=== PATIENT | male | born 1990 | race Caucasian/White ===

== ENCOUNTER 2017-07-06 03:29 | Emergency (ER) | payer MEDICAID ==
[2017-07-06] MEDS ORDERED: NS 1,000 ML IV ONE ×3 (03:31→06:03)
[2017-07-06] MEDS ORDERED: LORazepam 2 MG/ML INJ IVP ONE (03:32)
--- NOTE | 2017-07-06 03:35 | EDPHY ---
H & P Time Seen by Provider: 07/06/17 03:33 HPI/ROS: HPI CHIEF COMPLAINT: Nausea and vomiting HISTORY OF PRESENT ILLNESS: Patient is a 27-year-old male he resides at a [facility] house, states 2 days ago he did methamphetamine and heroin. States he snorted the heroin and injected methamphetamine. He states now this evening he had nausea vomiting. Denies any diarrhea. Denies chest pain or shortness of breath. He had multiple episodes of vomiting and a [facility] house call 911. Patient is concerned about withdrawal. He only did 1 dose of heroin and methamphetamine. EMS could not get night on him but they gave him oral Zofran. Past Medical History: Polysubstance abuse Past Surgical History: No recent surgery Social History: Polysubstance abuse, methamphetamine, heroin resides at a [facility] house. Family History: Noncontributory ROS REVIEW OF SYSTEMS: A comprehensive 10 point review of systems is otherwise negative aside from elements mentioned in the history of present illness. Exam Constitutional appears well nontoxic triage nursing summary reviewed, vital signs reviewed, awake/alert. Eyes normal conjunctivae and sclera, EOMI, PERRLA. HENT normal inspection, atraumatic, moist mucus membranes, no epistaxis, neck supple/ no meningismus, no raccoon eyes. Respiratory clear to auscultation bilaterally, normal breath sounds, no respiratory distress, no wheezing. Cardiovascular rate normal, regular rhythm, no murmur, no edema, distal pulses normal. Gastrointestinal soft, non-tender, no rebound, no guarding, normal bowel sounds, no distension, no pulsatile mass. Genitourinary no CVA tenderness. Musculoskeletal no midline vertebral tenderness, full range of motion, no calf swelling, no tenderness of extremities, no meningismus, good pulses, neurovascularly intact. Skin pink, warm, & dry, no rash, skin atraumatic. Neurologic awake, alert and oriented x 3, AAOx3, moves all 4 extremities equally, motor intact, sensory intact, CN II-XII intact, normal cerebellar, normal vision, normal speech. Psychiatric normal mood/affect. Heme/Lymph/Immune no lymphadenopathy. Differential Diagnosis: Includes but is not limited to in a particular order dehydration contrast disturbance, acute nausea vomiting from drugs, methamphetamine abuse, heroin abuse, withdrawal, anxiety Medical Decision Making: Plan for this patient IV establishment with blood draw , check basic electrolytes, 1 L normal saline IV fluids, IV Ativan for anxiety and nausea, IV Benadryl, and re-evaluate Re-evaluation: 0555: Patient re-evaluated he received Benadryl and Ativan here for nausea and anxiety and is doing much better. His blood work has been reviewed. He has been resting comfortably common relaxed. He has not any vomiting here. His abdomen is soft nontender. Bleed the Benadryl and Ativan helped him with his recent use of methamphetamine and anxiety. 0700: Signed over to Dr. Wick, Patient sleepy from meds, resting, needs more time, then can be discharged from er. Source: Patient, EMS Constitutional: Initial Vital Signs Temperature (C) 36.8 C 07/06/17 03:34 Heart Rate 91 07/06/17 03:34 Respiratory Rate 22 H 07/06/17 03:34 Blood Pressure 136/86 H 07/06/17 03:34 O2 Sat (%) 95 07/06/17 03:34 O2 Delivery Mode Nasal Cannula O2 (L/minute) 1 Allergies/Adverse Reactions: Penicillins Allergy (Verified 07/06/17 03:30) Home Medications: Medication Instructions Recorded NK [No Known Home Meds] 07/06/17 Medical Decision Making - Data Points Laboratory Results: Laboratory Results 07/06/17 03:45 07/06/17 03:45 07/06/17 07/06/17 03:45 03:45 WBC 11.61 10^3/uL H 10^3/uL (3.80-9.50) RBC 4.76 10^6/uL 10^6/uL (4.40-6.38) Hgb 14.5 g/dL g/dL (13.7-17.5) Hct 41.9 % % (40.0-51.0) MCV 88.0 fL fL (81.5-99.8) MCH 30.5 pg pg (27.9-34.1) MCHC 34.6 g/dL g/dL (32.4-36.7) RDW 12.1 % % (11.5-15.2) Plt Count 224 10^3/uL 10^3/uL (150-400) MPV 10.1 fL fL (8.7-11.7) Neut % (Auto) 71.2 % % (39.3-74.2) Lymph % (Auto) 18.7 % % (15.0-45.0) Nelson % (Auto) 9.4 % % (4.5-13.0) Eos % (Auto) 0.1 % L % (0.6-7.6) Baso % (Auto) 0.3 % % (0.3-1.7) Nucleat RBC Rel Count 0.0 % % (0.0-0.2) Absolute Neuts (auto) 8.27 10^3/uL H 10^3/uL (1.70-6.50) Absolute Lymphs (auto) 2.17 10^3/uL 10^3/uL (1.00-3.00) Absolute Monos (auto) 1.09 10^3/uL H 10^3/uL (0.30-0.80) Absolute Eos (auto) 0.01 10^3/uL L 10^3/uL (0.03-0.40) Absolute Basos (auto) 0.04 10^3/uL 10^3/uL (0.02-0.10) Absolute Nucleated RBC 0.00 10^3/uL 10^3/uL (0-0.01) Immature Gran % 0.3 % % (0.0-1.1) Immature Gran # 0.03 10^3/uL 10^3/uL (0.00-0.10) Sodium 143 mEq/L mEq/L (135-145) Potassium 4.6 mEq/L mEq/L (3.5-5.2) Chloride 106 mEq/L mEq/L (97-110) Carbon Dioxide 23 mEq/l mEq/l (22-31) Anion Gap 14 mEq/L mEq/L (8-16) BUN 15 mg/dL mg/dL (7-23) Creatinine 1.1 mg/dL mg/dL (0.7-1.3) Estimated GFR > 60 Glucose 95 mg/dL mg/dL (70-100) Calcium 9.4 mg/dL mg/dL (8.5-10.4) Total Bilirubin 0.8 mg/dL mg/dL (0.1-1.4) Conjugated Bilirubin 0.5 mg/dL mg/dL (0.0-0.5) Unconjugated Bilirubin 0.3 mg/dL mg/dL (0.0-1.1) AST 21 IU/L IU/L (17-59) ALT 34 IU/L IU/L (21-72) Alkaline Phosphatase 101 IU/L IU/L (38-126) Total Protein 7.5 g/dL g/dL (6.3-8.2) Albumin 4.5 g/dL g/dL (3.5-5.0) Lipase 238 IU/L IU/L (23-300) Medications Given: Discontinued Medications Diphenhydramine HCl (Benadryl Injection) 25 mg IVP EDNOW ONE Stop: 07/06/17 03:33 Last Admin: 07/06/17 03:57 Dose: 25 mg Sodium Chloride (Ns) 1,000 mls @ 0 mls/hr IV EDNOW ONE; Wide Open PRN Reason: Protocol Stop: 07/06/17 03:32 Last Admin: 07/06/17 03:53 Dose: 1,000 mls Lorazepam (Ativan Injection) 0.5 mg IVP EDNOW ONE Stop: 07/06/17 03:33 Last Admin: 07/06/17 03:57 Dose: 0.5 mg Departure - Departure Disposition: Home, Routine, Self-Care Clinical Impression: Vomiting Qualifiers: Vomiting type: unspecified Vomiting Intractability: non-intractable Nausea presence: with nausea Qualified Code(s): R11.2 - Nausea with vomiting, unspecified Condition: Good Instructions: Acute Nausea and Vomiting (ED) Referrals: Patient,NotPresent [Unknown] - As per Instructions
[2017-07-06 03:58] LABS: PLATELET COUNT 224 10^3/uL (150-400)
[2017-07-06 12:05] VITALS: BP 109/69
== END 2017-07-06 12:23 | disposition home or self-care (01) ==
DX: R11.2 Nausea with vomiting, unspecified (principal); E86.9 Volume depletion, unspecified
CPT/HCPCS: 80305; 96374; J1200; J2060

== ENCOUNTER 2017-10-08 14:48 | Emergency (ER) | payer MEDICAID ==
[2017-10-08 14:55] VITALS: BP 138/88
--- NOTE | 2017-10-08 15:54 | EDPHY ---
H & P Time Seen by Provider: 10/08/17 15:19 HPI/ROS: CHIEF COMPLAINT: Right thumb injury HISTORY OF PRESENT ILLNESS: 19-year-old male presents emergency department with injury to the right thumb. The patient fell snowboarding jamming his right thumb. He complains of isolated pain to the right thumb. Denies any other trauma or injury. Denies pain in his right wrist. He is right-hand dominant. ROS: Denies numbness or tingling in his fingers, pain in his right wrist or elbow. Past Medical/Surgical History: Substance abuse Social History: Single Smoking Status: Current every day smoker Physical Exam: Examination the right thumb reveals obvious swelling noted from D IP joint to the very tip of the thumb. There is swelling and ecchymosis noted to the palmar , distal aspect of the right thumb. No rotational deformities noted. No subungual hematoma or laceration. The other fingers do not appear injured. Normal sensation to light touch with normal 2 point discrimination. Constitutional: Initial Vital Signs Temperature (C) 36.9 C 10/08/17 14:53 Heart Rate 83 10/08/17 14:53 Respiratory Rate 18 10/08/17 14:53 Blood Pressure 138/88 H 10/08/17 14:53 O2 Sat (%) 94 10/08/17 14:53 O2 Delivery Mode Room Air Allergies/Adverse Reactions: Penicillins Allergy (Verified 07/06/17 03:30) Home Medications: Medication Instructions Recorded NK [No Known Home Meds] 07/06/17 MDM/Departure - MDM Procedures: The patient was placed in Ortho Glass thumb spica splint and examined post application in good placement with normal PELOTA MAKER. ED Course/Re-evaluation: 27-year-old male presents to the emergency department with right thumb injury. X-rays reveal fracture to the base of the distal phalanx. He was placed in Ortho Glass splint and examined post application in good placement with normal PELOTA MAKER. - Depart Disposition: Home, Routine, Self-Care Clinical Impression: Fracture of thumb, right, closed Qualifiers: Encounter type: initial encounter Phalanx: distal Fracture alignment: nondisplaced Qualified Code(s): S62.524A - Nondisplaced fracture of distal phalanx of right thumb, initial encounter for closed fracture Condition: Good Instructions: Thumb Fracture (ED) Additional Instructions: Keep splint on and keep it dry. Ibuprofen 600 mg every 8 hr as needed for pain. Ice and elevate to help reduce swelling. Referrals: Vaibhav Cabrera MD [Medical Doctor] - 1-2 days without fail (On-call hand surgeon)
== END 2017-10-08 15:50 | disposition home or self-care (01) ==
DX: S62.524A Nondisplaced fracture of distal phalanx of right thumb, initial encounter for closed fracture (principal); F17.200 Nicotine dependence, unspecified, uncomplicated; V00.318A Other snowboard accident, initial encounter; Y99.8 Other external cause status; Y93.23 Activity, snow (alpine) (downhill) skiing, snowboarding, sledding, tobogganing and snow tubing